=== PATIENT | female | born 1955 | race Caucasian/White ===

== ENCOUNTER → 2016-12-03 | Outpatient (CLI) | payer OTHER ==
--- NOTE | 2016-12-03 16:56 | MA ---
Screening Digital Mammogram With iCAD Analysis Clinical Indications: Routine screening. The patient has had a benign right breast biopsy. Technique: Standard cephalocaudal and mediolateral oblique projections were obtained. This examinatio n was processed by the [email or web address] computer aided detection system. Comparison: May 2015, May 2014, March 2013, March 2012, March 2011, February 2010, January 2008. Breast density: Type C; Heterogeneously dense. Findings: CAD was reviewed. No masses, suspicious calcifications or other signs of malignancy are id entified. There has been no significant change in the appearance of either breast. Impression: Negative mammogram. BI-RADS 1. Recommendation: Annual screening as long as physical examination is negative in this patient with het erogeneously dense breasts. [facility] will send a result letter to the patient. Dense breast parenchyma diminishes mammographic sensitivity. Negative mammography should not preclude additional workup of a clinically suspicious finding. The patient's information is entered into a reminder system with a target due date for her next mammo gram.
== END ==
LOC: BMCIMAGING 14:54
DX: Z12.31 Encounter for screening mammogram for malignant neoplasm of breast (principal)
CPT/HCPCS: G0202

== ENCOUNTER → 2016-12-14 | Outpatient (CLI) | payer OTHER | LOC: BMCIMAGING 15:04 | PROVIDERS: ATTEND Internal Medicine | DX: Z13.820 Encounter for screening for osteoporosis (principal); Z78.0 Asymptomatic menopausal state ==

== ENCOUNTER → 2017-12-21 | Outpatient (CLI) | payer OTHER | LOC: BMCIMAGING 14:45 | PROVIDERS: ATTEND Internal Medicine | DX: Z12.31 Encounter for screening mammogram for malignant neoplasm of breast (principal) ==

== ENCOUNTER → 2019-02-12 | Outpatient (CLI) | payer OTHER | LOC: BMCIMAGING 14:20 | PROVIDERS: ATTEND Internal Medicine | DX: Z12.31 Encounter for screening mammogram for malignant neoplasm of breast (principal) ==